=== PATIENT | female | born 1990 | race Caucasian/White ===

== ENCOUNTER 2021-06-17 18:53 | Emergency (ER) | payer BC ==
[2021-06-17] MEDS ORDERED: IBUPROFEN800 MG PO (19:59)
== END 2021-06-17 20:15 | disposition home or self-care (01) ==
LOC: ER1 18:53
DX: S93.402A Sprain of unspecified ligament of left ankle, initial encounter (principal); X58.XXXA Exposure to other specified factors, initial encounter
CPT/HCPCS: 73610; 99283; J1885